=== PATIENT | female | born 1970 | race Caucasian/White ===

== ENCOUNTER 2019-04-10 12:59 | Emergency (ER) | payer OTHER ==
[2019-04-10] MEDS ORDERED: Adenosine 6 MG/2 ML SDV ONE (13:03)
[2019-04-10] MEDS ORDERED: Sodium Chloride 0.9% 2.5 ML Syringe FLUSH PRN (13:05)
[2019-04-10] MEDS ORDERED: Sodium Chloride 0.9% 1,000 ML IV ONE (13:05)
[2019-04-10] MEDS ORDERED: Sodium Chloride 0.9% 10 ML Syringe FLUSH PRN (13:05)
--- NOTE | 2019-04-10 13:12 | EDM.PDOC ---
ED HPI GENERAL MEDICAL PROBLEM - General Chief Complaint: Cardiovascular Problem Stated Complaint: ACCELERATED HEART RATE Time Seen by Provider: 04/10/19 13:06 Source of Information: Reports: Patient History Limitations: Reports: No Limitations - History of Present Illness INITIAL COMMENTS - FREE TEXT/NARRATIVE: HISTORY AND PHYSICAL: History of present illness: patient is a 49-year-old female presents to the ED with complaint of heart racing and feeling shaky that began about an hour prior to arrival to the ED. She denies chest pain, shortness of breath, fevers, chills, nausa, vomiting, abdominal pain, headache. Patient states that she has a history of this about 5 years ago and she had seen cardiology and was told that "nothing was wrong." She is not on any medications and not taking anything [id number]. She states that she does smoke tobacco occasionally and drinks alcohol occasionally. She reports she did have 6 drinks last night, both liquor and beer. She denies illicit drug use. She has surgical history of breast augmentin and . Review of systems: As per history of present illness and below otherwise all systems reviewed and negative. Past medical history: As per history of present illness and as reviewed below otherwise noncontributory. Surgical history: As per history of present illness and as reviewed below otherwise noncontributory. Social history: No reported history of drug or alcohol abuse. Family history: As per history of present illness and as reviewed below otherwise noncontributory. Physical exam: General: Patient sitting comfortably in no acute distress and nontoxic appearing HEENT: Atraumatic, normocephalic, pupils reactive, negative for conjunctival pallor or scleral icterus, mucous membranes moist, throat clear, neck supple, nontender, trachea midline. No meningeal signs. Lungs: Clear to auscultation, breath sounds equal bilaterally, chest nontender. Heart: S1S2, tachycardic, negative for clicks, rubs, or overt murmur. Abdomen: Soft, nondistended, nontender. Negative for masses or hepatosplenomegaly. Negative for costovertebral tenderness. No rigidity, rebound , guarding. Pelvis: Stable nontender. Genitourinary: Deferred. Rectal: Deferred. Extremities: Atraumatic, negative for cords or calf pain. Neurovascular unremarkable. Neuro: Awake, alert, oriented. Cranial nerves II through XII unremarkable. Cerebellum unremarkable. Motor and sensory unremarkable throughout. Exam nonfocal. Notes: Patient HR in 200s, vagal maneuvers attempted twice without improvement. 6mg Adenosine given, HR down to 130s. Lopressor given. Diagnostics: CBC, CMP, troponin, PT/INR, EKG, CXR Therapeutics: 1L NS IV bolus 6mg Adenosine IV 5mg Lopressor IV x 3 Cardiac monitoring O2 Prescriptions: Impression: SVT Plan: Discussed with patient that I would like to admit her for observation which she declined at this time and understands my concerns and risks of this. Patient did sign an AMA form. Definitive disposition and diagnosis as appropriate pending reevaluation and review of above. - Related Data Allergies Allergy/AdvReac Type Severity Reaction Status Date / Time Penicillins Allergy Other Verified 04/10/19 13:25 Sulfa (Sulfonamide Allergy Hives Verified 04/10/19 13:25 Antibiotics) Home Meds: Home Meds . [No Known Home Meds] 04/10/19 [History] ED ROS GENERAL - Review of Systems Review Of Systems: ROS reveals no pertinent complaints other than HPI. ED EXAM, GENERAL - Physical Exam Exam: See Below (see dictation) Course - Vital Signs Last Recorded V/S: Last Vital Signs Temp 97.3 F 04/10/19 13:00 Pulse 87 04/10/19 14:11 Resp 20 04/10/19 13:00 BP 142/102 H 04/10/19 14:11 Pulse Ox 96 04/10/19 13:00 - Orders/Labs/Meds Orders: Active Orders 24 hr Category Date Time Status Cardiac Monitoring [RC] . DIRECTED Care 04/10/19 13:05 Active EKG 12 Lead [EKG Documentation Completion] [RC] STAT Care 04/10/19 13:45 Active EKG Documentation Completion [RC] STAT Care 04/10/19 13:05 Active Pulse Oximetry [RC] ASDIRECTED Care 04/10/19 13:05 Active HCG QUALITATIVE,URINE [URCHEM] Stat Lab 04/10/19 14:10 Ordered Sodium Chloride 0.9% [Saline Flush] Med 04/10/19 13:05 Active 10 ml FLUSH ASDIRECTED PRN Sodium Chloride 0.9% [Saline Flush] Med 04/10/19 13:05 Active 2.5 ml FLUSH ASDIRECTED PRN Saline Lock Insert [OM.PC] Stat Oth 04/10/19 13:05 Ordered Medication Orders Sodium Chloride (Saline Flush) 10 ml FLUSH ASDIRECTED PRN PRN Reason: Keep Vein Open Last Admin: 04/10/19 13:21 Dose: 10 ml Sodium Chloride (Saline Flush) 2.5 ml FLUSH ASDIRECTED PRN PRN Reason: Keep Vein Open Last Admin: 04/10/19 13:21 Dose: 2.5 ml Labs: Laboratory Tests 04/10/19 04/10/19 04/10/19 Range/Units 13:00 13:00 13:00 WBC 8.94 (4.0-11.0) K/uL RBC 4.66 (4.30-5.90) M/uL Hgb 14.9 (12.0-16.0) g/dL Hct 43.5 (36.0-46.0) % MCV 93.3 (80.0-98.0) fL MCH 32.0 (27.0-32.0) pg MCHC 34.3 (31.0-37.0) g/dL RDW Std Deviation 45.4 (28.0-62.0) fl RDW Coeff of Tesha 13 (11.0-15.0) % Plt Count 377 (150-400) K/uL MPV 9.90 (7.40-12.00) fL Neut % (Auto) 62.4 (48.0-80.0) % Lymph % (Auto) 28.4 (16.0-40.0) % [place] % (Auto) 6.9 (0.0-15.0) % Eos % (Auto) 2.0 (0.0-7.0) % Baso % (Auto) 0.3 (0.0-1.5) % Neut # (Auto) 5.6 (1.4-5.7) K/uL Lymph # (Auto) 2.5 H (0.6-2.4) K/uL [place] # (Auto) 0.6 (0.0-0.8) K/uL Eos # (Auto) 0.2 (0.0-0.7) K/uL Baso # (Auto) 0.0 (0.0-0.1) K/uL Nucleated RBC % 0.0 /100WBC Nucleated RBCs # 0 K/uL INR 0.95 Sodium 143 (136-145) mmol/L Potassium 4.0 (3.5-5.1) mmol/L Chloride 103 (98-107) mmol/L Carbon Dioxide 26.3 (21.0-32.0) mmol/L BUN 7 (7.0-18.0) mg/dL Creatinine 0.7 (0.6-1.0) mg/dL Est Cr Clr Drug Dosing 72.55 mL/min Estimated GFR (MDRD) > 60.0 ml/min Glucose 107 H (74-106) mg/dL Calcium 9.4 (8.5-10.1) mg/dL Total Bilirubin 0.4 (0.2-1.0) mg/dL AST 67 H (15-37) IU/L ALT 47 (14-63) IU/L Alkaline Phosphatase 91 (46-116) U/L Troponin I < 0.050 (0.000-0.056) ng/mL Total Protein 8.4 H (6.4-8.2) g/dL Albumin 4.2 (3.4-5.0) g/dL Globulin 4.2 H (2.6-4.0) g/dL Albumin/Globulin Ratio 1.0 (0.9-1.6) Meds: Medications Generic Name Dose Route Start Last Admin Trade Name Freq PRN Reason Stop Dose Admin Sodium Chloride 10 ml 04/10/19 13:05 04/10/19 13:21 Saline Flush FLUSH 10 ml ASDIRECTED PRN Administration Keep Vein Open Sodium Chloride 2.5 ml 04/10/19 13:05 04/10/19 13:21 Saline Flush FLUSH 2.5 ml ASDIRECTED PRN Administration Keep Vein Open Discontinued Medications Generic Name Dose Route Start Last Admin Trade Name Freq PRN Reason Stop Dose Admin Adenosine Confirm 04/10/19 13:03 04/10/19 13:21 Adenocard Administered 04/10/19 13:04 Not Given Dose 18 mg .ROUTE .STK-MED ONE Adenosine 6 mg 04/10/19 13:21 04/10/19 13:22 Adenocard IVPUSH 04/10/19 13:22 6 mg NOW ONE Administration Sodium Chloride 1,000 mls @ 999 mls/hr 04/10/19 13:05 04/10/19 13:21 Normal Saline IV 04/10/19 14:05 999 mls/hr BOLUS ONE Administration Metoprolol Tartrate 5 mg 04/10/19 13:15 04/10/19 13:36 Lopressor IVPUSH 04/10/19 13:26 5 mg Q5M BIANCA Administration Departure - Departure Time of Disposition: 14:18 Disposition: Against Medical Advice 07 Condition: Good Clinical Impression: Supraventricular tachycardia Referrals: PCP,Unobtain [Primary Care Provider] - Forms: ED Department Discharge Additional Instructions: The following information is given to patients seen in the emergency department who are being discharged to home. This information is to outline your options for follow-up care. We provide all patients seen in our emergency department with a follow-up referral. The need for follow-up, as well as the timing and circumstances, are variable depending upon the specifics of your emergency department visit. If you don't have a primary care physician on staff, we will provide you with a referral. We always advise you to contact your personal physician following an emergency department visit to inform them of the circumstance of the visit and for follow-up with them and/or the need for any referrals to a consulting specialist. The emergency department will also refer you to a specialist when appropriate. This referral assures that you have the opportunity for follow-up care with a specialist. All of these measure are taken in an effort to provide you with optimal care, which includes your follow-up. Under all circumstances we always encourage you to contact your private physician who remains a resource for coordinating your care. When calling for follow-up care, please make the office aware that this follow-up is from your recent emergency room visit. If for any reason you are refused follow-up, please contact the [facility] at and asked to speak to the emergency department charge nurse. [facility] [address] [place] [id number] [id number] Follow up with cardiology Return to ED as needed as discussed - My Orders Last 24 Hours: My Active Orders 04/10/19 13:05 Cardiac Monitoring [RC] . DIRECTED EKG Documentation Completion [RC] STAT Pulse Oximetry [RC] ASDIRECTED Sodium Chloride 0.9% [Saline Flush] 10 ml FLUSH ASDIRECTED PRN Sodium Chloride 0.9% [Saline Flush] 2.5 ml FLUSH ASDIRECTED PRN Saline Lock Insert [OM.PC] Stat 04/10/19 13:45 EKG 12 Lead [EKG Documentation Completion] [RC] STAT 04/10/19 14:10 HCG QUALITATIVE,URINE [URCHEM] Stat - Assessment/Plan Last 24 Hours: My Active Orders 04/10/19 13:05 Cardiac Monitoring [RC] . DIRECTED EKG Documentation Completion [RC] STAT Pulse Oximetry [RC] ASDIRECTED Sodium Chloride 0.9% [Saline Flush] 10 ml FLUSH ASDIRECTED PRN Sodium Chloride 0.9% [Saline Flush] 2.5 ml FLUSH ASDIRECTED PRN Saline Lock Insert [OM.PC] Stat 04/10/19 13:45 EKG 12 Lead [EKG Documentation Completion] [RC] STAT 04/10/19 14:10 HCG QUALITATIVE,URINE [URCHEM] Stat
[2019-04-10] MEDS: Metoprolol Tartrate 5 MG/5 ML SDV IVPUSH SCH ×3 (13:19→13:36)
[2019-04-10] MEDS ORDERED: Adenosine 6 MG/2 ML SDV IVPUSH ONE (13:21)
[2019-04-10 13:47] LABS: BLOOD UREA NITROGEN,BUN 7 mg/dL (7.0-18.0); CARBON DIOXIDE,CO2 26.3 mmol/L (21.0-32.0); CHLORIDE,CL 103 mmol/L (98-107); GLUCOSE RANDOM 107 mg/dL (74-106); SODIUM,NA 143 mmol/L (136-145)
--- NOTE | 2019-04-10 14:06 | CR ---
EXAM DATE: 04/10/19 PATIENT'S AGE: 49 Chest: Portable view of the chest was obtained. Comparison: No prior chest x-ray. Heart size and mediastinum are normal. Lungs are clear. Bony structures are grossly intact. Impression: 1. Nothing acute is appreciated on portable chest x-ray. Diagnostic code #1 Report Signed by Proxy. KEMI
== END 2019-04-10 14:33 | disposition left against medical advice (07) ==
LOC: MW.ED 12:59
DX: I47.1 Supraventricular tachycardia (principal); Z98.82 Breast implant status; Z88.0 Allergy status to penicillin; Z88.2 Allergy status to sulfonamides
CPT/HCPCS: 36415; 71045; 80053; 81025; 84484; 85025; 85610; 93005; 96374; 99285; J0153; J3490; J7040